=== PATIENT | female | born 1980 | race African-American/Black ===

== ENCOUNTER 2017-09-11 19:43 | Emergency (ER) | payer SELFPAY ==
[2017-09-11] MEDS ORDERED: Adacel (T-DAP) 0.5 ML VIAL ONE (20:06)
--- NOTE | 2017-09-11 21:08 | RAD ---
THREE VIEWS RIGHT HAND 09/11/17 COMPARISON: None. HISTORY: Laceration. FINDINGS: There are foci of subcutaneous gas within the soft tissues of the palm adjacent to the first, second and third metacarpals. No associated fracture/dislocation or radiopaque foreign body seen. IMPRESSION: Subcutaneous gas consistent with laceration. POS: [facility]
[2017-09-11] MEDS ORDERED: HYDROcodone/Acetaminophen 5/325 mg Tablet ONE (21:09)
--- NOTE | 2017-09-11 21:15 | RAD ---
RIGHT SHOULDER THREE VIEWS: 09/11/17 COMPARISON: None. HISTORY: Trauma, pain. FINDINGS: No widening of the AC or CC interspace. No fracture or evidence of dislocation. IMPRESSION: No acute findings. POS: [place]
[2017-09-12] MEDS ORDERED: Lidocaine 1% PF 5 ML VIAL ONE ×2 (00:38→00:42)
[2017-09-12] MEDS ORDERED: Bacitracin Zinc 1 Packet ONE (00:43)
[2017-09-12] MEDS ORDERED: HYDROcodone/Acetaminophen 5/325 mg Tablet ONE (01:23)
== END 2017-09-12 01:52 | disposition home or self-care (01) ==
LOC: ERS 19:43
DX: S61.412A Laceration without foreign body of left hand, initial encounter (principal); G89.11 Acute pain due to trauma; J45.909 Unspecified asthma, uncomplicated; Z23 Encounter for immunization; V43.62XA Car passenger injured in collision with other type car in traffic accident, initial encounter
CPT/HCPCS: 12004; 90471; 90715; J2001